=== PATIENT | female | born 1990 | race Caucasian/White ===

== ENCOUNTER 2018-08-28 12:14 | Emergency (ER) | payer MEDICAID ==
--- NOTE | 2018-08-28 12:55 | EDPHY ---
H & P Time Seen by Provider: 08/28/18 12:41 HPI/ROS: CHIEF COMPLAINT: Lower abdominal pelvic pain HISTORY OF PRESENT ILLNESS: Patient is a history of gastrointestinal issues which she describes as bloating related to certain foods. She had an IUD a year and half ago which also gave her pelvic symptoms and was removed. She does not have a history of PID or pelvic surgery or ectopic. Patient was having sexual intercourse this morning around 9:00 a.m. When she had sudden onset of bilateral lower abdominal pain which was severe and she lay on the floor for about an hour, it is much better now but not completely gone. Not associated with vaginal bleeding or urinary symptoms, normal bowel movement today. No vomiting or fever. REVIEW OF SYSTEMS: Eye: no change in vision ENT: no sore throat Cardiac: no chest pain or syncope Pulmonary: no cough or SOB Abdomen: HPI Musculoskeletal: no back pain Skin: no rash Neuro: no headache Constitutional: no fever : HPI A comprehensive 10 point review of systems is otherwise negative aside from elements mentioned in the history of present illness. PAST MEDICAL HISTORY: Negative Social history: Nonsmoker General Appearance: Alert and conversant, cooperative. Eyes: No scleral icterus. ENT, Mouth: Normal mucous membranes. Respiratory: Normal respiratory effort, breath sounds equal, lungs are clear to auscultation. Cardiovascular: Regular rate and rhythm. Gastrointestinal: No rebound or guarding. No McBurney's point tenderness. Minimal discomfort with palpation of the entire lower abdomen. Neurological: Alert, face symmetric, normal motor and sensory in extremities. Skin: Warm and dry, no rashes. Musculoskeletal: No peripheral edema. Psychiatric: Not agitated. Emergency Department course/MDM: Urine negative, test negative. Pelvic exam performed the patient's nurse shows normal external and internal genitalia with no cervical motion tenderness. I think UTI or renal colic or PID or ectopic are all unlikely. Ultrasound discussed and consented. 1536: 3.9cm max diameter hemorrhagic right ovarian cyst; Mao. Results discussed with the patient. She is comfortable with diagnosis being discharged and follow-up as an outpatient with OBGYN. Smoking Status: Never smoked Constitutional: Initial Vital Signs Temperature (C) 36.8 C 08/28/18 12:27 Heart Rate 84 08/28/18 12:27 Respiratory Rate 18 08/28/18 12:27 Blood Pressure 115/70 08/28/18 12:27 O2 Sat (%) 95 08/28/18 12:27 O2 Delivery Mode Room Air Allergies/Adverse Reactions: No Known Allergies Allergy (Unverified 08/28/18 12:27) Home Medications: Medication Instructions Recorded NK [No Known Home Meds] 08/28/18 Medical Decision Making - Diagnostics Imaging Results: Imaging Impressions Pelvic/Renal Ultrasound 08/28/18 12:54 Impression: 1. Patient most likely ruptured an hemorrhagic ovarian cyst from the right ovary. 2. Normal left ovary and uterus. 3. Follow-up pelvic ultrasound is suggested in 1-3 months to assure resolution of the hemorrhagic cyst on the right. Findings and recommendations discussed with Dr. Nilesh Thomas at 3:00 PM, 2018. Final report concurs with initial preliminary interpretation. Imaging: Discussed imaging studies w/ olive picker Radiologist - Data Points Laboratory Results: 08/28/18 08/28/18 08/28/18 13:00 12:45 12:45 Urine Color PALE YELLOW Urine Appearance CLEAR Urine pH 7.0 (5.0-7.5) Ur Specific [place] 1.002 (1.002-1.030) Urine Protein NEGATIVE (NEGATIVE) Urine Ketones NEGATIVE (NEGATIVE) Urine Blood NEGATIVE (NEGATIVE) Urine Nitrate NEGATIVE (NEGATIVE) Urine Bilirubin NEGATIVE (NEGATIVE) Urine Urobilinogen NEGATIVE EU EU (0.2-1.0) Ur Leukocyte Esterase NEGATIVE (NEGATIVE) Urine Glucose NEGATIVE (NEGATIVE) Urine Test NEGATIVE C.trachomatis RNA (TMA) Pending N.gonorrhoeae RNA (TMA) Pending Departure - Departure Disposition: Home, Routine, Self-Care Clinical Impression: Ovarian cyst Qualifiers: Laterality: right Qualified Code(s): N83.201 - Unspecified ovarian cyst, right side Condition: Good Instructions: Ovarian Cyst (ED) Additional Instructions: manager oracle referral given. Referrals: Nini Serrano DO [Doctor of Osteopathy] - As per Instructions
[2018-08-28 15:55] VITALS: BP 110/78
[2018-08-29 11:38] LABS: GC AMPLIFICATION GENPROBE NEGATIVE (NEGATIVE)
== END 2018-08-28 15:54 | disposition home or self-care (01) ==
DX: N83.201 Unspecified ovarian cyst, right side (principal); R10.2 Pelvic and perineal pain